=== PATIENT | male | born 1945 | race African-American/Black ===

== ENCOUNTER 2016-10-26 10:59 | Emergency (ER) | payer MEDICARE, MEDICAID ==
[~2016-10-26] VITALS: Ht 188 cm; Wt 77.0 kg
[~2016-10-26 10:59] MED LIST: HYDR-519 PO; KEFLL11 PO
[2016-10-26 12:03] LABS: BASOPHILS % 0.3 % (0.0-2.0); EOSINOPHILS % 0.7 % (0.0-5.0); HEMATOCRIT. 38.7 % (42.0-52.0); HEMOGLOBIN. 13.5 g/dL (14.0-18.0); LYMPHOCYTES % 10.6 % (20.0-50.0); MEAN CORPUSCULAR HEMOGLOBIN 33.9 pg (28.0-32.0); MEAN CORPUSCULAR VOLUME 96.9 fL (80.0-94.0); MEAN PLATELET VOLUME 7.5 fl (7.4-10.4); MONOCYTES % 8.1 % (2.0-8.0); NEUTROPHILS % 80.3 % (40.0-76.0); PLATELET 169 x1000/uL (130-400); RED BLOOD CELL COUNT 3.99 mill/uL (4.7-6.1); RED CELL DISTRIBUTION WIDTH 16.2 % (11.6-14.6)
[2016-10-26 12:13] LABS: INR 1.1; PROTHROMBIN TIME 11.3 sec
[2016-10-26 12:20] LABS: CARBON DIOXIDE 28 mEq/L (21-32); CHLORIDE 101 mEq/L (98-107); TROPONIN I < 0.02 ng/mL (0.00-0.04)
[2016-10-26] MEDS ORDERED: ACETAMINOPHEN WITH CODEINE 300/30MG TABLET PO ONE (14:15)
[2016-10-26 14:35] VITALS: BP 132/79
== END 2016-10-26 15:09 | disposition home or self-care (01) ==
LOC: ER 14:25
DX: R60.0 Localized edema (principal); C14.0 Malignant neoplasm of pharynx, unspecified; I49.1 Atrial premature depolarization; Z92.3 Personal history of irradiation; R26.2 Difficulty in walking, not elsewhere classified; Z72.0 Tobacco use; M25.572 Pain in left ankle and joints of left foot
CPT/HCPCS: 36415; 71010; 73610; 80053; 83880; 84484; 85025; 85610; 93005; 93971; 99285

== ENCOUNTER 2016-12-08 09:12 | Emergency (ER) | payer MEDICARE, MEDICAID, OTHER ==
[~2016-12-08] VITALS: Ht 188 cm; Wt 78.0 kg
[2016-12-08 10:21] VITALS: BP 127/91
[2016-12-08] MEDS ORDERED: TETANUS, DIPHTHERIA, PERTUSSIS VAC/PF 0.5ML (>7YR OLD) IM ONE (10:30)
[2016-12-08] MEDS ORDERED: CEPHALEXIN 500MG CAPSULE PO ONE (11:15)
== END 2016-12-08 12:24 | disposition home or self-care (01) ==
LOC: ER 10:19
DX: S61.011A Laceration without foreign body of right thumb without damage to nail, initial encounter (principal); F17.210 Nicotine dependence, cigarettes, uncomplicated; Z71.6 Tobacco abuse counseling; W31.2XXA Contact with powered woodworking and forming machines, initial encounter; Y93.89 Activity, other specified; Y92.018 Other place in single-family (private) house as the place of occurrence of the external cause
CPT/HCPCS: 29130; 73140; 90471; 90715; 99284

== ENCOUNTER 2018-05-03 01:05 | Emergency (ER) | payer MEDICARE, MEDICAID ==
[~2018-05-03] VITALS: Ht 188 cm; Wt 90.7 kg
[2018-05-03 03:15] VITALS: BP 114/66
[2018-05-03] MEDS ORDERED: ACETAMINOPHEN 325MG TABLET PO ONE (03:15)
== END 2018-05-03 03:17 | disposition home or self-care (01) ==
LOC: ER 01:05
DX: M94.0 Chondrocostal junction syndrome [Tietze] (principal); F17.200 Nicotine dependence, unspecified, uncomplicated; Z87.01 Personal history of pneumonia (recurrent)
CPT/HCPCS: 71045; 93005; 99283

== ENCOUNTER 2018-05-13 08:36 | Emergency (ER) | payer MEDICARE, MEDICAID ==
[~2018-05-13] VITALS: Ht 188 cm; Wt 81.0 kg
[2018-05-13] MEDS ORDERED: AMLO5TAB88 PO (08:46)
[2018-05-13] MEDS ORDERED: KETOROLAC 30MG/ML VIAL IV STA (09:02)
[2018-05-13 09:39] LABS: BASOPHILS % 0.3 % (0.0-2.0); EOSINOPHILS % 0.2 % (0.0-5.0); HEMATOCRIT. 47.6 % (42.0-52.0); HEMOGLOBIN. 16.5 g/dL (14.0-18.0); LYMPHOCYTES % 10.6 % (20.0-50.0); MEAN CORPUSCULAR HEMOGLOBIN 36.2 pg (28.0-32.0); MEAN CORPUSCULAR VOLUME 104.6 fL (80.0-94.0); MEAN PLATELET VOLUME 8.1 fl (7.4-10.4); MONOCYTES % 7.4 % (2.0-8.0); NEUTROPHILS % 81.5 % (40.0-76.0); PLATELET 209 x1000/uL (130-400); RED BLOOD CELL COUNT 4.55 mill/uL (4.7-6.1); RED CELL DISTRIBUTION WIDTH 14.1 % (11.6-14.6)
[2018-05-13 09:46] LABS: CHLORIDE 100 mEq/L (98-107)
[2018-05-13] MEDS ORDERED: TRAMADOL 50MG TABLET PO ONE (10:30)
[2018-05-13 10:39] VITALS: BP 132/81
== END 2018-05-13 11:03 | disposition home or self-care (01) ==
LOC: ER 09:00
DX: R07.89 Other chest pain (principal); R79.89 Other specified abnormal findings of blood chemistry; I10 Essential (primary) hypertension; F17.200 Nicotine dependence, unspecified, uncomplicated; Z98.890 Other specified postprocedural states
CPT/HCPCS: 36415; 71045; 80053; 84484; 85025; 85379; 93005; 96374; 99284; J1885

== ENCOUNTER 2018-10-17 09:45 | Emergency (ER) | payer MEDICARE, MEDICAID ==
[~2018-10-17] VITALS: Ht 188 cm; Wt 79.0 kg
[~2018-10-17 09:45] MED LIST changes: +AMLO5TAB88 PO; -HYDR-519 PO; -KEFLL11 PO
[2018-10-17] MEDS ORDERED: ACETAMINOPHEN WITH CODEINE 300/30MG TABLET PO STA (10:20)
[2018-10-17] MEDS ORDERED: SODIUM CHLORIDE 0.9% 1,000 ML IV ONE (10:20)
[2018-10-17 10:55] LABS: BASOPHILS % 0.5 % (0.0-2.0); EOSINOPHILS % 1.3 % (0.0-5.0); HEMOGLOBIN. 15.1 g/dL (14.0-18.0); LYMPHOCYTES % 16.9 % (20.0-50.0); MEAN CORPUSCULAR HEMOGLOBIN 37.2 pg (28.0-32.0); MEAN CORPUSCULAR VOLUME 105.7 fL (80.0-94.0); MEAN PLATELET VOLUME 7.8 fl (7.4-10.4); MONOCYTES % 7.9 % (2.0-8.0); NEUTROPHILS % 73.4 % (40.0-76.0); PLATELET 187 x1000/uL (130-400); RED BLOOD CELL COUNT 4.07 mill/uL (4.7-6.1)
[2018-10-17 11:02] LABS: CHLORIDE 104 mEq/L (98-107)
[2018-10-17] MEDS ORDERED: VANCOMYCIN 1 G PREMIX 200 ML IV ONE (11:45)
[2018-10-17] MEDS ORDERED: SODIUM CHLORIDE 0.9% 1000ML BAG (SEPSIS BOLUS) IV ONE (11:45)
[2018-10-17] MEDS ORDERED: PIPERACILLIN/TAZ 3.375G PREMIX 50 ML IV ONE (11:45)
[2018-10-17] MEDS ORDERED: MULTIVITAMINS,THER W-MINERALS TABLET PO SCH (15:00)
[2018-10-17] MEDS ORDERED: NICOTINE 21MG PATCH TD SCH (15:00)
[2018-10-17] MEDS ORDERED: THIAMINE HCL 100MG TABLET PO SCH (15:00)
[2018-10-17] MEDS ORDERED: FOLIC ACID 1MG TABLET PO SCH (15:00)
[2018-10-17] MEDS ORDERED: NICOTINE 21MG PATCH TD NR (16:00)
[2018-10-17] MEDS ORDERED: ACETAMINOPHEN WITH CODEINE 300/30MG TABLET PO ONE (19:00)
[2018-10-17 20:09] VITALS: BP 136/82
== END 2018-10-17 20:22 | disposition short-term general hospital (02) ==
LOC: ER 09:45 → EDBEDREQ 14:29 → CANBEDREQ 16:02 → ER 20:22
DX: L97.519 Non-pressure chronic ulcer of other part of right foot with unspecified severity (principal); L08.9 Local infection of the skin and subcutaneous tissue, unspecified; S92.424A Nondisplaced fracture of distal phalanx of right great toe, initial encounter for closed fracture; X58.XXXA Exposure to other specified factors, initial encounter; Y93.89 Activity, other specified; Y92.89 Other specified places as the place of occurrence of the external cause; I10 Essential (primary) hypertension; F17.210 Nicotine dependence, cigarettes, uncomplicated; R74.0 Nonspecific elevation of levels of transaminase and lactic acid dehydrogenase [LDH]; F10.20 Alcohol dependence, uncomplicated; Y90.9 Presence of alcohol in blood, level not specified; E87.2 Acidosis
CPT/HCPCS: 36415; 73620; 80053; 83605; 85025; 87040; 96365; 96366; 96368; 99285; J2543; J3370; J7030

== ENCOUNTER 2021-07-02 11:06 | Emergency (ER) | payer MEDICARE, MEDICAID ==
[~2021-07-02] VITALS: Ht 188 cm; Wt 80.0 kg
[2021-07-02 11:16] VITALS: BP 126/78
[2021-07-02] MEDS ORDERED: ACETAMINOPHEN 325MG TABLET PO ONE (11:30)
[2021-07-02] MEDS ORDERED: BACITRACIN ZINC OINT UDPKT TOP ONE (11:30)
[2021-07-02] MEDS ORDERED: LIDOCAINE HCL/PF 1% 10 MG/ML 5ML VIAL INFIL ONE (11:30)
[2021-07-02] MEDS ORDERED: LIDOCAINE HCL 1% 20ML VIAL (Pyxis) INJ INFIL NR (13:30)
[2021-07-02] MEDS ORDERED: ACET-2708 PO (14:13)
[2021-07-02] MEDS ORDERED: SULF1TAB48 PO (14:13)
[2021-07-02] MEDS ORDERED: CEPH500C2 PO (14:13)
== END 2021-07-02 14:22 | disposition home or self-care (01) ==
LOC: ER 11:06
DX: L02.413 Cutaneous abscess of right upper limb (principal); I10 Essential (primary) hypertension; Z87.01 Personal history of pneumonia (recurrent); Z85.6 Personal history of leukemia
CPT/HCPCS: 99283; J3490